=== PATIENT | female | born 1935 | race African-American/Black ===

== ENCOUNTER 2018-08-16 23:43 | Emergency (ER) | payer OTHER ==
[~2018-08-16] VITALS: Ht 172.7 cm; Wt 72.6 kg
--- NOTE | ~2018-08-16 | EKG ---
[address] [employer] [place] [address] ELECTROCARDIOGRAM REPORT Name: WENDY CARSON Room #: DEP [facility] VISTAVladimir#: [id number] Admission: 08/16/18 Attend Phys: Discharge: 08/17/18 Date of : 35 Report #: [id number] THIS REPORT FOR: //name// [facility] ED Test Date: 2018-08-17 Test Time: 00:22:42 Pat Name: WENDY CARSON Department: Room: Gender: F [employer]: NAHED HATFIELD : 1935 Requested By: Benedict Amaya Order Number: [id number] MD: Dimas Thomas Measurements Intervals [place] Rate: 91 P: 67 CO: 161 QRS: 67 QRSD: 85 T: 72 QT: 387 QTc: 477 Interpretive Statements Sinus rhythm No significant abnormality No previous ECG available for comparison Electronically Signed On 08-17-2018 10:44:30 [employer] by Dimas Thomas [email or web address] <ELECTRONICALLY SIGNED> By: Dimas Thomas MD, [facility] 08/17/18 1044 0022 0022 Dimas Thomas MD, FACC /EPI
[2018-08-17] MEDS ORDERED: ALPHAGAN P5 ML OPHTHALMIC (00:04)
[2018-08-17 00:06] LABS: HEMATOCRIT 36.7 % (37.0-47.0); HEMOGLOBIN 12.5 gm/dL (12.0-15.0); MCH 31.5 pg (26.0-34.0); MCV 92.9 fL (80.0-100.0); RBC 3.95 mil/uL (4.20-5.00); WBC 8.3 thou/uL (4.0-11.0)
[2018-08-17] MEDS ORDERED: ARICEPT 5 MG TAB5 MG PO (00:06)
[2018-08-17] MEDS ORDERED: ASPIR 8181 MG PO (00:06)
[2018-08-17] MEDS ORDERED: VITAMIN B-12500 MCG PO (00:07)
[2018-08-17] MEDS ORDERED: IRON325 PO (00:08)
[2018-08-17] MEDS ORDERED: NEXIUM40 MG PO (00:08)
[2018-08-17] MEDS ORDERED: DEPAKOTE 250MG250 M1 PO (00:08)
[2018-08-17] MEDS ORDERED: NORCO 5-325 TA1 EACH PO (00:09)
[2018-08-17 00:15] LABS: ANION GAP 7 mmol/L (7-16); BUN 10 mg/dL (7-18); CHLORIDE 102 mmol/L (98-107); CO2 30 mmol/L (21-32); CREATININE 1.1 mg/dL (0.6-1.0); GLUCOSE 221 mg/dL (74-106); POTASSIUM 3.6 mmol/L (3.5-5.1); SODIUM 139 mmol/L (136-145)
[2018-08-17 00:24] LABS: TROPONIN-I <0.06 ng/mL (<0.06)
[2018-08-17] MEDS ORDERED: LANTUS100 UNIT/M SUBQ (00:32)
[2018-08-17] MEDS ORDERED: LOPERAMIDE 2 MG2 M1 PO (00:32)
[2018-08-17] MEDS ORDERED: MOBIC7.5 MG PO ×2 (00:33→00:34)
[2018-08-17] MEDS ORDERED: MILK OF MA2400 MG/10 PO ×2 (00:33→00:34)
[2018-08-17] MEDS ORDERED: QUESTRAN PACKET4 GM PO (00:35)
[2018-08-17] MEDS ORDERED: NAMENDA 5 MG TAB5 M1 PO (00:35)
[2018-08-17] MEDS ORDERED: ROBITUSSIN100 MG/53 PO (00:36)
[2018-08-17] MEDS ORDERED: TEARS AGAIN15 ML OPHTHALMIC (00:36)
[2018-08-17] MEDS ORDERED: TRAZODONE HCL100 MG PO (00:37)
[2018-08-17] MEDS ORDERED: MAPAP500 MG PO (00:37)
[2018-08-17] MEDS ORDERED: WELLBUTRIN SR150 MG PO (00:38)
[2018-08-17 01:52] LABS: APTT 24.2 Seconds (24.5-32.8); PROTIME 9.6 Seconds (9.3-11.4)
[2018-08-17 02:10] VITALS: BP 176/91
== END 2018-08-17 02:15 | disposition still patient (30) ==
LOC: ER 23:43
PROVIDERS: Emergency Medicine
DX: S06.5X0A Traumatic subdural hemorrhage without loss of consciousness, initial encounter (principal); S00.03XA Contusion of scalp, initial encounter; R55 Syncope and collapse; E11.9 Type 2 diabetes mellitus without complications; I10 Essential (primary) hypertension; F20.9 Schizophrenia, unspecified; Z79.4 Long term (current) use of insulin; Z88.0 Allergy status to penicillin; W18.30XA Fall on same level, unspecified, initial encounter; Y93.89 Activity, other specified; Y92.89 Other specified places as the place of occurrence of the external cause; Y99.8 Other external cause status